=== PATIENT | female | born 1990 | race American Indian/Alaskan Native ===

== ENCOUNTER 2018-02-09 10:45 | Emergency (ER) | payer SELFPAY ==
--- NOTE | 2018-02-09 13:14 | Emergency Department Report ---
ED Female HPI - General Chief complaint: Urogenital-Female Stated complaint: CLYMIDIA/GONNERHEA Time Seen by Provider: 02/09/18 12:47 Source: patient Mode of arrival: Ambulatory Limitations: No Limitations - History of Present Illness Initial comments: This is a 27-year-old female nontoxic, well nourished in appearance, no acute signs of distress presents to the ED for a STD check-up. Patient denies any vaginal discharge, bleeding, pain or swelling. Patient stated she is about 4 weeks and found out today. Patient stated she went to a health department and they refused to treat or test her because she is . Patient stated her boyfriend is positive for "STD" and wants to be treated empirically and tested. Patient denies any vaginal ulcers or lesions. Patient denies any nausea, vomiting, chest pain, shortness of breathe, fever, chills, headache, back pain, numbness, tingling, stiff neck. Patient denies any urinary symptoms. Patient denies any allergies or PMH. MD Complaint: possible STD Severity scale (0 -10): 0 Improves with: none Worsens with: none Last Menstrual Period: 01/06/18 EDC: 10/13/18 Associated Symptoms: denies other symptoms. denies: vaginal discharge, vaginal bleeding, abdominal pain, nausea/vomiting, fever/chills, headaches, loss of appetite, dysuria, hematuria, rash, seizure, shortness of breath, syncope, weakness - Related Data Previous Rx's Medication Instructions Recorded Last Taken Type Clotrimazole [Clotrimazole 3] 21 gm VG DAILY 3 Days #1 cream.appl 02/09/18 Unknown Rx metroNIDAZOLE [Flagyl] 500 mg PO Q12HR #14 tab 02/09/18 Unknown Rx Allergies Allergy/AdvReac Type Severity Reaction Status Date / Time No Known Allergies Allergy Unverified 02/09/18 11:21 ED Review of Systems ROS: Stated complaint: CLYMIDIA/GONNERHEA Other details as noted in HPI Constitutional: denies: chills, fever Eyes: denies: eye pain, eye discharge, vision change ENT: denies: ear pain, throat pain Respiratory: denies: cough, shortness of breath, wheezing Cardiovascular: denies: chest pain, palpitations Endocrine: no symptoms reported Gastrointestinal: denies: abdominal pain, nausea, diarrhea Genitourinary: denies: urgency, dysuria, discharge Musculoskeletal: denies: back pain, joint swelling, arthralgia Skin: denies: rash, lesions Neurological: denies: headache, weakness, paresthesias Psychiatric: denies: anxiety, depression Hematological/Lymphatic: denies: easy bleeding, easy bruising ED Past Medical Hx - Past Medical History Previous Medical History?: No - Surgical History Past Surgical History?: No - Social History Smoking Status: Never Smoker Substance Use Type: None - Medications Home Medications: Home Medications Medication Instructions Recorded Confirmed Last Taken Type Clotrimazole [Clotrimazole 3] 21 gm VG DAILY 3 Days #1 cream.appl 02/09/18 Unknown Rx metroNIDAZOLE [Flagyl] 500 mg PO Q12HR #14 tab 02/09/18 Unknown Rx ED Physical Exam - General Limitations: No Limitations General appearance: alert, in no apparent distress - Head Head exam: Present: atraumatic, normocephalic - Eye Eye exam: Present: normal appearance - ENT ENT exam: Present: mucous membranes moist - Neck Neck exam: Present: normal inspection - Respiratory Respiratory exam: Present: normal lung sounds bilaterally. Absent: respiratory distress - Cardiovascular Cardiovascular Exam: Present: regular rate, normal rhythm. Absent: systolic murmur, diastolic murmur, rubs, gallop - GI/Abdominal GI/Abdominal exam: Present: soft, normal bowel sounds - External exam: Present: normal external exam, other (pharmacy clinical specialist Nah[employer] ranch rider present during exam). Absent: erythema, swelling, lesions, lacerations, ecchymosis, bleeding Speculum exam: Present: normal speculum exam, other (pharmacy clinical specialist [employer] ranch rider present during exam). Absent: erythema, vaginal discharge, cervical discharge, vaginal bleeding, foreign body, tissue, laceration Bi-manual exam: Present: normal bi-manual exam, other (pharmacy clinical specialist [employer] ranch rider present during exam). Absent: cervical motion tendernes, adnexal tenderness, adnexal mass, uterine enlargement, uterine tenderness - Extremities Exam Extremities exam: Present: normal inspection, full ROM - Back Exam Back exam: Present: normal inspection, full ROM - Neurological Exam Neurological exam: Present: alert, oriented X3, normal gait - Psychiatric Psychiatric exam: Present: normal affect, normal mood - Skin Skin exam: Present: warm, dry, intact, normal color. Absent: rash ED Course Vital Signs 02/09/18 11:19 Temperature 98.9 F Pulse Rate 78 Respiratory 16 Rate Blood Pressure 123/64 O2 Sat by Pulse 100 Oximetry - Reevaluation(s) Reevaluation #1: 02/09/18 13:15 Patient is speaking in full sentences with no signs of distress noted. ED Medical Decision Making - Medical Decision Making This is a 27-year-old female that presents with possible STD, BV, and yeast. Patient is stable was examined by me. There is no abdominal tenderness. No pelvic pain. UA obtained. Wet prep obtained. Gonorrhea chlamydia swab pending. Patient was instructed to return in 2 days for GC results. Patient wanted empirical treatment so patient received 250 mg Rocephin and 1 g of azithromycin by mouth. Patient is discharged with Flagyl and vaginal nystatin. Patient was instructed Patient was instructed to Follow-up with a primary care doctor in 3-5 days or if symptoms worsen and continue return to emergency room as soon as possible. At time of discharge, the patient does not seem toxic or ill in appearance. No acute signs of distress noted. Patient agrees to discharge treatment plan of care. No further questions noted by the patient. Critical care attestation.: If time is entered above; I have spent that time in minutes in the direct care of this critically ill patient, excluding procedure time. ED Disposition Clinical Impression: Bacterial vaginosis, Possible exposure to STD, Yeast infection of the vagina Disposition: DC-01 TO HOME OR SELFCARE Is pt being admited?: No Does the pt Need Aspirin: No Condition: Stable Instructions: Bacterial Vaginosis (ED), Metronidazole (By mouth), Safe Sex (ED) , Vulvovaginal Candidiasis (ED) Additional Instructions: Follow-up with a primary care doctor in 3-5 days or if symptoms worsen and continue return to emergency room as soon as possible. Return in 3-5 days for gonorrhea and chlamydia results Prescriptions: Clotrimazole [Clotrimazole 3] 21 gm VG DAILY 3 Days #1 cream.appl metroNIDAZOLE [Flagyl] 500 mg PO Q12HR #14 tab Referrals: PRIMARY CARE, [Primary Care Provider] - 3-5 Days SWAPNA PURVIS MD [Staff Physician] - 3-5 Days [facility] [Provider Group] - 3-5 Days [facility] [Outside] - 3-5 Days Forms: Work/School Release Form(ED)
[2018-02-09] MEDS ORDERED: XYLOCAINE 1% MPF 5 mL INFILTRATI ONE (13:16)
[2018-02-09] MEDS ORDERED: ROCEPHIN IM ONE (13:16)
[2018-02-09] MEDS ORDERED: ZITHROMAX PO ONE (13:16)
[2018-02-09 16:41] VITALS: BP 122/66
== END 2018-02-09 16:40 | disposition home or self-care (01) ==
LOC: ED 10:45
DX: O26.891 Other specified pregnancy related conditions, first trimester (principal); N76.0 Acute vaginitis; B37.3 Candidiasis of vulva and vagina; Z3A.01 Less than 8 weeks gestation of pregnancy
CPT/HCPCS: 87210; 87591; 96372; 99283; J0696

== ENCOUNTER 2018-09-28 16:05 | Outpatient (CLI) | payer MEDICAID | END 2018-09-28 18:56 | disposition home or self-care (01) | LOC: TRG 16:05 ==

== ENCOUNTER 2018-10-03 07:51 | Inpatient (IN) | payer MEDICAID ==
[2018-10-03] MEDS ORDERED: LACTATED RINGERS 2,000 ML ONE (08:32)
[2018-10-03 09:13] LABS: Basophils % (Auto) 0.4 % (0.0-1.8); Eosinophils # (Auto) 0.1 K/mm3 (0.0-0.4); Eosinophils % (Auto) 0.9 % (0.0-4.3); Hematocrit 37.2 % (30.3-42.9); Hemoglobin 12.5 gm/dl (10.1-14.3); Lymphocytes # (Auto) 1.8 K/mm3 (1.2-5.4); Lymphocytes % (Auto) 20.9 % (13.4-35.0); Mean Corpuscular HGB Conc 34 % (30-34); Mean Corpuscular Volume 85 fl (79-97); Monocytes # (Auto) 1.1 K/mm3 (0.0-0.8); Monocytes % (Auto) 12.3 % (0.0-7.3); Platelet Count 225 K/mm3 (140-440); Red Blood Count 4.36 M/mm3 (3.65-5.03); Red Cell Distribution Width 13.4 % (13.2-15.2)
--- NOTE | 2018-10-03 09:30 | History and Physical Report ---
History of Present Illness Date of examination: 10/03/18 Chief complaint: Previous C Section in labor History of present illness: Pt is a 27yo BF EDC 10/12/18; EGA 38 5/7 weeks presents to L&D complaining of RUC's q 3-4 mins. She had a previous C Section and initially wanted a TOLAC, but now desires a Repeat C Section. She received 1 visit at [facility] @ 38 weeks and co-managed by [facility] for late care. records are available but GBS is unknown. Past History Past Medical History: no pertinent history Past Surgical History: section Family/Genetic History: none Social history: no significant social history, single - Obstetrical History Expected Date of Delivery: 10/12/18 Actual Gestation: 38 Week(s) 6 Day(s) : 7 Medications and Allergies Allergies Allergy/AdvReac Type Severity Reaction Status Date / Time No Known Allergies Allergy Verified 06/24/18 19:00 Home Medications Medication Instructions Recorded Confirmed Last Taken Type Clotrimazole [Clotrimazole 3] 21 gm VG DAILY 3 Days #1 cream.appl 02/09/18 Unknown Rx metroNIDAZOLE [Flagyl] 500 mg PO Q12HR #14 tab 02/09/18 Unknown Rx Acetaminophen [Tylenol Extra 1,000 mg PO Q8H PRN #30 tablet 06/24/18 Unknown Rx Strength] Amoxicillin/Potassium Clav 1 each PO BID #24 tablet 06/24/18 Unknown Rx [Augmentin 875-125 Tablet] Ondansetron [Zofran Odt] 4 mg PO Q8HR PRN #15 tab.rapdis 06/24/18 Unknown Rx Review of Systems All systems: negative - Vital Signs Vital signs: Vital Signs Pulse BP 77 110/61 10/03/18 08:10 10/03/18 08:10 Temp Pulse Resp BP Pulse Ox 98.1 F 76 16 132/83 10/03/18 08:56 10/03/18 08:55 10/03/18 08:56 10/03/18 08:55 - Physical Exam Breasts: Positive: deferred Cardiovascular: Regular rate Lungs: Positive: Clear to auscultation Abdomen: Positive: normal appearance Genitourinary (Female): Positive: normal external genitalia Vagina: Positive: normal moisture Uterus: Positive: enlarged Extremities: Positive: normal - Obstetrical FHR: category 1 Uterine Contraction Monitor Mode: External Uterine Contraction Pattern: Regular Uterine Tone Measurement Phase: Contraction Uterine Contraction Intensity: Strong/Firm Results Result Diagrams: 10/03/18 23:11 Abnormal lab results 10/03/18 Range/Units 09:00 Moffat % (Auto) 12.3 H (0.0-7.3) % Moffat # 1.1 H (0.0-0.8) K/mm3 All other labs normal. Assessment and Plan - Patient Problems (1) 38 weeks gestation of Onset Date: 10/03/18 Current Visit: Yes Status: Resolved Plan to address problem: A: IUP @ 38 5/7 weeks in labor Previous C Section Insufficient care Unknown GBS P: Admit to L&D for Repeat C Section (2) Previous section Onset Date: 10/03/18 Current Visit: Yes Status: Resolved (3) Insufficient care Onset Date: 10/03/18 Current Visit: Yes Status: Acute Qualifiers: Trimester: third trimester Qualified Code(s): O09.33 - Supervision of pre gnancy with insufficient care, third trimester
[2018-10-03] MEDS ORDERED: SUBLIMAZE ONE (09:56)
[2018-10-03] MEDS ORDERED: ASTRAMORPH PF 10MG/10ML ONE (09:56)
[2018-10-03] MEDS ORDERED: PITOCin/NS 20 UNIT/1000ML DRIP 20 UNITS/1,000 ML BAG IV SCH ×2 (10:00→12:00)
[2018-10-03] MEDS ORDERED: LACTATED RINGERS 1,000 ML IV SCH (10:00)
[2018-10-03] MEDS ORDERED: ANCEF/STERILE WATER 2 GM/20 ML 2 GM/20 ML SYRINGE IV NR (10:00)
[2018-10-03] MEDS ORDERED: PEPCID IV NR (10:00)
[2018-10-03] MEDS ORDERED: BICITRA PO NR (10:00)
[2018-10-03] MEDS ORDERED: REGLAN IV NR (10:00)
--- NOTE | 2018-10-03 10:08 | Anesthesia Day of Surgery ---
Anesthesia Day of Surgery - Day of Surgery Patient Examined: Yes Patient H&P Reviewed: Yes Patient is NPO: Yes Beta Blockers: No Cardiac Clearance: No Pulmonary Clearance: No Chaz's Test: N/A
--- NOTE | 2018-10-03 10:08 | Anesthesia Consultation ---
Anesthesia Consult and Med Hx - Airway Anesthetic Teeth Evaluation: Good ROM Head & Neck: Adequate Mental/Hyoid Distance: Adequate Mallampati Class: Class II Intubation Access Assessment: Good - Pulmonary Exam CTA: Yes - Cardiac Exam Cardiac Exam: RRR - Pre-Operative Health Status ASA Pre-Surgery Classification: ASA2 Proposed Anesthetic Plan: Spinal - Pulmonary Hx Smoking: No Hx Asthma: No Hx Respiratory Symptoms: No SOB: No COPD: No Home Oxygen Therapy: No Hx Pneumonia: No Hx Sleep Apnea: No - Cardiovascular System Hx Hypertension: No Hx Coronary Artery Disease: No Hx Heart Attack/AMI: No Hx Angina: No Hx Percutaneous Transluminal Coronary Angioplasty (PTCA): No Hx Cardia Arrhythmia: No Hx Pacemaker: No Hx Internal Defibrillator: No Hx Valvular Heart Disease: No Hx Heart Murmur: No - Central Nervous System Hx Neuromuscular Disorder: No Hx Seizures: No CVA: No Hx Back Pain: No Hx Psychiatric Problems: No - Gastrointestinal Hx Ulcer: No Hx Gastroesophageal Reflux Disease: No - Endocrine Hx Renal Disease: No Hx End Stage Renal Disease: No Hx Cirrhosis: No Hx Liver Disease: No Hx Insulin Dependent Diabetes: No Hx Non-Insulin Dependent Diabetes: No Hx Thyroid Disease: No Hx Hypothyroidism: No Hx Hyperthyroidism: No - Hematic Hx Anemia: No Hx Sickle Cell Disease: No - Other Systems Hx Alcohol Use: No Hx Substance Use: No Hx Cancer: No Hx Obesity: No
[2018-10-03] MEDS ORDERED: NARCAN 0.4 MG/1 ML IV PRN ×2 (10:30→11:38)
[2018-10-03] MEDS ORDERED: ZOFRAN IV PRN (10:30)
[2018-10-03] MEDS ORDERED: PHENERGAN PO PRN (10:30)
[2018-10-03] MEDS ORDERED: TORADOL ONE (10:53)
[2018-10-03] MEDS ORDERED: WATER FOR IRRIG STERILE IR ONE (10:56)
[2018-10-03] MEDS ORDERED: NACL 0.9% IR ONE (10:56)
[2018-10-03] MEDS ORDERED: SODIUM CHLORIDE FLUSH SYRINGE 10 ML IV PRN (11:00)
[2018-10-03] MEDS ORDERED: PHENERGAN PR PRN (11:00)
[2018-10-03] MEDS ORDERED: fentaNYL-BUPIV 2 MCG/ML-0.125% 200 MCG/100 ML BAG EPIDURAL SCH (11:00)
--- NOTE | 2018-10-03 11:36 | Operative Report ---
Operative Report Operative Report: Date of procedure: 10/03/2018 Pre-operative diagnosis: 1. Intrauterine at 38-5/7 weeks in labor 2 . Previous 3. Insufficient care Post-operative diagnosis: Same Procedure name(s): Repeat low transverse section Surgeon: Jaun Morse MD Highway Technician: None Anesthesia: Spinal anesthesia by Dr. Zavaleta EBL: 600 mL Findings: A 3030 g male infant Apgars 8 at 1 minute 9 at 5 minutes. Clear amniotic fluid. Normal uterus. Normal tubes and ovaries bilaterally. Procedure: After the patient was prepped and draped in usual sterile fashion, and after satisfactory level of epidural anesthesia was obtained, the skin knife was used to make a transverse skin incision through the previous skin scar. The incision was excised down to layer of the fascia, which was nicked in the midline and extended laterally using the Bovie cautery. The rectus muscles were dissected off the rectus fascia both superiorly and inferiorly. The rectus bellies in the midline, and the peritoneum was entered under direct visualization. The peritoneal incision was extended superiorly and inferiorly. A bladder flap was created and the bladder blade was then placed. The uterus was scored in a curvilinear linear fashion, entered in the midline revealing clear amniotic fluid. The infant's head was delivered onto the surgical field, and the oropharynx and nasopharynx were bulb suctioned. The rest of the 's body was delivered, cord was doubly clamped and cut and the was handed to the waiting respiratory team. The placenta was manually removed from the uterus, and the uterus removed from its normal anatomical position. After gentle uterine lavage, the incision was inspected and found to be without extensions. It was then closed in 2 layers using 0 Vicryl suture in a running interlocking fashion, the second layer imbricating the first. After good hemostasis was achieved, copious amounts or irrigation was performed, and the gutters were suctioned free of blood and blood clots. The Tisseel sealant was sprayed across the uterine incision. The uterus was then returned to its normal anatomical position, and after excellent hemostasis assured, the peritoneum was re-approximated using 3-0 Vicryl suture in a running interlocking fashion, and then the rectus muscles were re-approximated using 3-0 Vicryl suture in a [id number] configuration. The fascia was then re-approximated using 0 Vicryl suture in running interlocking fashion. The subcutaneous layer was made hemostatic using Bovie cautery, the Tisseel sealant was sprayed across the fascial incision and the skin edges re-approximated using 4-0 Vicryl suture in a sub-cuticular fashion. Patient tolerated the procedure well was transported to recovery in stable condition.
[2018-10-03] MEDS ORDERED: SENOKOT PO PRN (11:38)
[2018-10-03] MEDS ORDERED: TYLENOL PO PRN (11:38)
[2018-10-03] MEDS ORDERED: MYLICON PO PRN (11:38)
[2018-10-03] MEDS ORDERED: TUCKS PAD TP PRN (11:38)
[2018-10-03] MEDS ORDERED: LANSINOH TP PRN (11:38)
[2018-10-03] MEDS ORDERED: MILK OF MAGNESIA PO PRN (11:38)
[2018-10-03] MEDS ORDERED: NORCO 5/325 PO PRN (11:38)
--- NOTE | 2018-10-03 11:51 | Post Anesthesia Evaluation ---
- Post Anesthesia Evaluation Patient Participated: Yes Airway Patent: Yes Stable Respiratory Function: Yes Nausea/Vomiting: No Temp > 96.8F: Yes Pain Manageable: Yes Adequeate Hydration: Yes Anesthesia Complications: No Block Receding Appropriately: Yes Patient on Ventilator: No
[2018-10-03] MEDS ORDERED: D5LR 1,000 ML IV SCH (12:00)
[2018-10-03] MEDS ORDERED: SODIUM CHLORIDE FLUSH SYRINGE 10 ML IV NR (12:00)
[2018-10-03] MEDS: BENADRYL PO PRN (15:15)
[2018-10-03] MEDS: TORADOL IV PRN ×2 (17:33→23:09)
[2018-10-03] MEDS: ANCEF/NS 1 GM/50 ML 1 GM/50 ML BAG IV SCH (21:59)
[2018-10-04] MEDS: BENADRYL PO PRN ×2 (00:13→08:52)
[2018-10-04 00:41] LABS: Hematocrit 34.7 % (30.3-42.9); Hemoglobin 11.7 gm/dl (10.1-14.3)
[2018-10-04] MEDS: PERCOCET 5/325 PO PRN ×3 (05:16→21:03)
[2018-10-04] MEDS: ANCEF/NS 1 GM/50 ML 1 GM/50 ML BAG IV SCH (05:18)
[2018-10-04] MEDS ORDERED: BOOSTRIX IM ONE (06:00)
[2018-10-04] MEDS ORDERED: M-M-R II VACCINE SUB-Q ONE (06:00)
--- NOTE | 2018-10-04 09:00 | Progress Note ---
Assessment and Plan - Patient Problems (1) 38 weeks gestation of Onset Date: 10/03/18 Current Visit: Yes Status: Resolved (2) Previous section Onset Date: 10/03/18 Current Visit: Yes Status: Resolved (3) Status post Onset Date: 10/04/18 Current Visit: Yes Status: Resolved Plan to address problem: A: S/P Repeat C Section - POD #1 Doing well Asymptomatic anemia - stable P: Continue RPOC Anticipate discharge in 24-48hrs Subjective - Subjective Date of service: 10/04/18 Principal diagnosis: s/p Repeat C Section - POD #1 Interval history: Pt is feeling well without complaints. Bleeding improved. She is tolerating a liquid diet without nausea or vomiting. Patient reports: appetite normal, voiding normally, pain well controlled, flatus, ambulating normally, no dizzy ambulation, no nauseated [place]: doing well, nursing well, bottle feeding Objective - Vital Signs Latest vital signs: Vital Signs Temp Pulse Resp BP BP Pulse Ox 10/04/18 08:04 98.9 F 103 H 20 128/81 95 10/04/18 05:16 20 10/04/18 04:00 98.2 F 86 20 104/55 10/04/18 00:00 98.2 F 80 20 115/70 10/03/18 23:39 18 10/03/18 23:09 18 10/03/18 20:00 98.0 F 71 18 132/73 10/03/18 17:33 20 10/03/18 15:30 98.9 F 74 18 140/87 10/03/18 13:25 98.6 F 65 121/78 100 10/03/18 12:45 98.3 F 62 18 115/44 100 10/03/18 12:35 78 19 102/54 100 10/03/18 12:30 71 17 100/44 100 10/03/18 12:15 71 17 100/44 100 10/03/18 12:00 71 17 100/44 100 10/03/18 11:55 69 19 95/47 100 10/03/18 11:50 74 14 102/57 100 10/03/18 11:46 98.2 F 73 16 111/50 99 Intake and Output 10/03/18 10/04/18 10/04/18 22:59 06:59 14:59 Intake Total 370 240 Output Total 400 600 Balance -30 -360 Intake: IV 50 ANCEF/NS 1 GM/50 ML 1 gm 50 In 50 ml @ 100 mls/hr IV Q8H [facility] Rx#:[id number] Oral 320 240 Output: Urine 400 600 Indwelling Catheter 400 600 Other: Total, Intake Amount 320 240 Total, Output Amount 400 600 # Voids Indwelling Catheter 1 Void 1 - Exam Breasts: Present: deferred Abdomen: Present: normal appearance, soft Uterus: Present: normal, firm, fundal height below umbilicus Extremities: Present: normal Incision: Present: normal, dry, intact, dressed - Labs Labs: Abnormal lab results 10/03/18 Range/Units 09:00 Desha % (Auto) 12.3 H (0.0-7.3) % Desha # 1.1 H (0.0-0.8) K/mm3 Laboratory Tests 10/03/18 10/03/18 10/03/18 09:00 09:00 09:00 WBC 8.6 RBC 4.36 Hgb 12.5 Hct 37.2 MCV 85 MCH 29 MCHC 34 RDW 13.4 Plt Count 225 Lymph % (Auto) 20.9 Desha % (Auto) 12.3 H Eos % (Auto) 0.9 Baso % (Auto) 0.4 Lymph # 1.8 Desha # 1.1 H Eos # 0.1 Baso # 0.0 Seg Neutrophils % 65.5 Seg Neutrophils # 5.7 RPR Nonreactive Blood Type A POSITIVE Antibody Screen Negative 10/03/18 23:11 WBC RBC Hgb 11.7 Hct 34.7 MCV MCH MCHC RDW Plt Count Lymph % (Auto) Desha % (Auto) Eos % (Auto) Baso % (Auto) Lymph # Desha # Eos # Baso # Seg Neutrophils % Seg Neutrophils # RPR Blood Type Antibody Screen
[2018-10-04] MEDS: FEOSOL PO SCH (11:06)
[2018-10-04] MEDS: PRENATAL VITAMIN PO SCH (11:06)
[2018-10-04] MEDS: IBUPROFEN PO PRN (21:03)
[2018-10-05] MEDS: BENADRYL PO PRN ×2 (01:35→10:11)
[2018-10-05] MEDS: IBUPROFEN PO PRN ×4 (07:22→23:51)
[2018-10-05] MEDS: PERCOCET 5/325 PO PRN ×3 (07:24→23:51)
[2018-10-05] MEDS: PRENATAL VITAMIN PO SCH (10:12)
[2018-10-05] MEDS: FEOSOL PO SCH (10:12)
--- NOTE | 2018-10-05 12:07 | Progress Note ---
Assessment and Plan - Patient Problems (1) 38 weeks gestation of Onset Date: 10/03/18 Current Visit: Yes Status: Resolved (2) Previous section Onset Date: 10/03/18 Current Visit: Yes Status: Resolved (3) Insufficient care Onset Date: 10/03/18 Current Visit: Yes Status: Resolved Qualifiers: Trimester: third trimester Qualified Code(s): O09.33 - Supervision of with insufficient care, third trimester (4) Status post Onset Date: 10/04/18 Current Visit: Yes Status: Resolved Plan to address problem: A: S/P Repeat C Section - POD #2 Doing well Asymptomatic anemia - stable P: May go home tomorrow. Subjective - Subjective Date of service: 10/05/18 Principal diagnosis: s/p Repeat C Section - POD #2 Interval history: Pt is feeling well without complaints. She is tolerating a reg diet without nausea or vomiting, ambulating and voiding without difficulty. Patient reports: appetite normal, voiding normally, pain well controlled, flatus, ambulating normally, no dizzy ambulation, no nauseated [place]: doing well, nursing well Objective - Vital Signs Latest vital signs: Vital Signs Temp Pulse Resp BP Pulse Ox 10/05/18 09:06 98.3 F 74 24 118/61 96 10/05/18 00:52 98.4 F 75 18 119/71 96 10/04/18 16:04 98.6 F 96 H 20 115/80 99 10/04/18 13:07 20 Intake and Output 10/04/18 10/05/18 10/05/18 22:59 06:59 14:59 Intake Total 240 300 Balance 240 300 Intake: Oral 240 Intake, Free Water 300 Other: Total, Intake Amount 240 # Voids Void 1 - Exam Breasts: Present: deferred Abdomen: Present: normal appearance, soft Uterus: Present: normal, firm, fundal height below umbilicus Extremities: Present: normal Incision: Present: normal, dry, intact
--- NOTE | 2018-10-05 12:09 | Discharge Summary ---
Providers - Providers Date of Admission: 10/03/18 09:28 Date of discharge: 10/06/18 Attending physician: BASIL PURVIS Primary care physician: BASIL PURVIS Hospitalization Reason for admission: active labor, section, IUP at term Delivery: Procedure: section, repeat low transverse Episiotomy: none Laceration: none Incision: normal, dry, intact Other procedures: none complications: none Discharge diagnosis: IUP at term delivered [place] baby: male Hospital course: Pt is a 27yo BF EDC 10/12/18; EGA 38 5/7 weeks who presented to L&D complaining of RUC's q 3-4 mins. She had a previous C Section and now desires a Repeat C Section. She underwent an uncomplicated Repeat C Section and tolerated the procedure well. By POD # 2 she was tolerating a reg diet without nausea or vomiting, ambulating and voiding without difficulty, she will therefore be discharged to home on POD #3 in stable condition Condition at discharge: Good Disposition: DC-01 TO HOME OR SELFCARE - Discharge Diagnoses (1) 38 weeks gestation of Status: Resolved (2) Previous section Status: Resolved (3) Insufficient care Status: Resolved Qualifiers: Trimester: third trimester Qualified Code(s): O09.33 - Supervision of with insufficient care, third trimester (4) Status post Status: Resolved Plan - Discharge Medications Prescriptions: Ferrous Sulfate [Feosol 325 MG tab] 325 mg PO BID #60 tablet Ibuprofen [Motrin 800 MG tab] 800 mg PO Q6H PRN #30 tablet PRN Reason: Pain, Mild (1-3) oxyCODONE /ACETAMINOPHEN [Percocet 5/325 mg] 1 tab PO Q6H PRN #30 tablet PRN Reason: Pain, Moderate (4-6) Vit-Fe Fumar-FA [ Vitamin] 1 each PO QDAY #30 tablet - Provider Discharge Summary Activity: routine, no sex for 6 weeks, no heavy lifting 4 weeks, no strenuous exercise Diet: routine Instructions: routine Additional instructions: [] Smoking cessation referral if applicable(refer to patient education folder for contact #) [] Refer to [facility] Booklet Call your doctor immediately for: * Fever > 100.5 * Heavy vaginal bleeding ( >1 pad per hour) * Severe persistent headache * Shortness of breath * Reddened, hot, painful area to leg or breast * Drainage or odor from incision. * Keep incision clean and dry at all times and follow doctor's instructions regarding bathing/showering - Follow up plan Follow up: BASIL PURVIS MD [Primary Care Provider] - 14 Days CARLOS ALBERTO WONG NP [Referring] - 14 Days
[2018-10-06] MEDS: IBUPROFEN PO PRN (06:11)
[2018-10-06] MEDS: PERCOCET 5/325 PO PRN ×2 (06:12→10:34)
[2018-10-06] MEDS: FEOSOL PO SCH (10:30)
[2018-10-06] MEDS: PRENATAL VITAMIN PO SCH (10:30)
[2018-10-06 13:31] VITALS: BP 128/79
== END 2018-10-06 13:05 | disposition home or self-care (01) | DRG 766 ==
LOC: TRG 07:51 → APU 09:28 → TRG 09:28 → OB 14:09
PROVIDERS: ADMIT Obstetrics & Gynecology; ATTEND Obstetrics & Gynecology
PROC: 10D00Z1 Extraction of Products of Conception, Low, Open Approach (ICD-10-PCS; principal; 2018-10-03)
DX: O34.211 Maternal care for low transverse scar from previous cesarean delivery (principal); O90.81 Anemia of the puerperium; D64.9 Anemia, unspecified; Z3A.38 38 weeks gestation of pregnancy; Z37.0 Single live birth
CPT/HCPCS: 36415; 85014; 85018; 85025; 86592; 86850; 86900; 86901; G0378; A6250; C9250; J0690; J1885; J2274; J2590; J2765; J3010; J7120; J7121